=== PATIENT | female | born 1970 | race Caucasian/White ===

== ENCOUNTER → 2017-02-06 | Outpatient (CLI) | payer BC ==
[~2017-02-06] VITALS: Ht 167.6 cm; Wt 140.0 kg
[~2017-02-06] MED LIST: ALBUTEROL SULF8.5 GM IH; ALDACTONE100 MG PO; BAL B-1001 EACH PO; ENDOCET 5-3251 EACH PO; FIBER GUMMIES2 GM PO; GLUCOPHAGE1000 MG PO; HUMIRA40 MG/0.8 SC; JANUVIA100 MG PO; LITE COAT ASPI325 M1 PO; MOTRIN600 MG PO; MULTI-DAY VITA1 EACH PO; NEURONTIN100 MG PO; TRADJENTA5 MG PO; TRULICITY1.5 MG/0.5 SC; TYLENOL REGULA325 MG PO; VITAMIN D2000 UNIT PO; VOLTAREN-XR100 MG PO; ZOLOFT100 MG PO
[2017-02-06 07:27] LABS: POINT-OF-CARE METER ID UU14107333
[2017-02-06 08:50] LABS: POINT-OF-CARE METER ID UU13113675
== END | disposition home or self-care (01) ==
LOC: AMB 06:54
PROVIDERS: Internal Medicine
PROC: 0DJ08ZZ Inspection of Upper Intestinal Tract, Via Natural or Artificial Opening Endoscopic (ICD-10-PCS; principal; 2017-02-06)
DX: K22.10 Ulcer of esophagus without bleeding (principal); K31.89 Other diseases of stomach and duodenum; E11.40 Type 2 diabetes mellitus with diabetic neuropathy, unspecified; E11.65 Type 2 diabetes mellitus with hyperglycemia; E66.01 Morbid (severe) obesity due to excess calories; Z68.42 Body mass index [BMI] 45.0-49.9, adult; L73.2 Hidradenitis suppurativa; Z79.899 Other long term (current) drug therapy; G47.33 Obstructive sleep apnea (adult) (pediatric); G89.29 Other chronic pain; F32.9 Major depressive disorder, single episode, unspecified; Z80.0 Family history of malignant neoplasm of digestive organs; Z82.49 Family history of ischemic heart disease and other diseases of the circulatory system; Z83.3 Family history of diabetes mellitus; Z83.49 Family history of other endocrine, nutritional and metabolic diseases
CPT/HCPCS: 82948; 93005; J2250

== ENCOUNTER → 2017-05-11 | Outpatient (CLI) | payer BC | END | disposition home or self-care (01) | LOC: NUC 04-10 08:30 | DX: K21.9 Gastro-esophageal reflux disease without esophagitis (principal) | CPT/HCPCS: 78264; A9541 ==